=== PATIENT | male | born 1970 | race Caucasian/White ===

== ENCOUNTER 2024-12-12 11:45 | Inpatient (IN) | payer MEDICAID ==
[~2024-12-12] VITALS: Ht 162.6 cm; Wt 48.6 kg
[2024-12-12] MEDS: IPRATROPIUM BROMIDE (0.02%) 0.5MG/2.5ML NEB HHN STA (11:48)
[2024-12-12 11:50] VITALS: RESP 26
[2024-12-12] MEDS ORDERED: ALBUTEROL (0.083%) 2.5MG/3ML NEB HHN SCH (12:00)
[2024-12-12] MEDS: METHYLPREDNISOLONE SOD SUCC 125MG/2ML (ACT-O-VIAL) IV STA (12:30)
[2024-12-12] MEDS: LACTATED RINGERS 1,000 ML IV SCH (12:59)
[2024-12-12 13:29] LABS: CHLORIDE 97 mEq/L (98-107); POTASSIUM 3.9 mEq/L (3.5-5.1); SODIUM 130 mEq/L (136-145)
[2024-12-12 13:30] LABS: CALCIUM 9.1 mg/dL (8.7-10.4); CARBON DIOXIDE 21 mEq/L (21-32)
[2024-12-12 13:32] LABS: INR 1.1; PROTHROMBIN TIME 12.5 sec (9.6-11.0)
[2024-12-12 13:35] LABS: CREATININE 0.6 mg/dL (0.6-1.3); GLUCOSE 178 mg/dL (70-105); UREA NITROGEN BLOOD 16 mg/dL (9-23)
[2024-12-12 13:36] LABS: ALANINE AMINOTRANSFERASE 31 IU/L (10-49); LACTIC ACID 2.8 mmol/L (0.4-2.0); TROPONIN I HIGH SENSITIVITY 6 ng/L (3.0-53)
[2024-12-12 13:37] LABS: ALBUMIN 3.8 g/dL (3.2-4.8); ASPARTATE AMINOTRANSFERASE 45 IU/L (<34); BILIRUBIN DIRECT 0.4 mg/dL (<=3.0); PROTEIN TOTAL 7.3 g/dL (6.0-8.3)
[2024-12-12 13:56] LABS: HEMATOCRIT. 35.6 % (42.0-52.0); HEMOGLOBIN. 11.2 g/dL (14.0-18.0); MEAN CORPUSCULAR HGB CONC 31.6 g/dL (31.0-37.0); MEAN CORPUSCULAR VOLUME 75.9 fL (80.0-94.0); MEAN PLATELET VOLUME 8.5 fl (7.4-10.4); PLATELET 186 x1000/uL (130-400); RED CELL DISTRIBUTION WIDTH 20.2 % (11.6-14.6); WHITE BLOOD COUNT 22.2 x1000/uL (4.5-11.0)
[2024-12-12 14:09] LABS: BG BASE EXCESS -2.1 mmol/L (-2.0-3.0); BG CARBOXYHEMOGLOBIN 1.2 % (0.5-1.5); BG DEOXYHEMOGLOBIN 0.1 % (0.0-5.0); BG FRACTION INSPIRED OXYGEN 100; BG HCO3 ACT 22.3 mmol/L (21.0-28.0); BG METHEMOGLOBIN 0.3 % (0.5-1.5); BG OXYGEN SATURATION 99.9 % (94.0-98.0); BG OXYHEMOGLOBIN 98.4 % (94.0-98.0); BG PCO2 36.7 mmHg (35.0-48.0); BG PH 7.401 (7.350-7.450); BG PO2 346.6 mmHg (83.0-108.0); BG SAMPLE SITE RIGHT RADIAL; BG TOTAL HEMOGLOBIN 12.5 g/dL (13.5-17.5); BG VENT MODE MASK - BIPAP; DIFFERENTIAL COMMENT 1
[2024-12-12] MEDS: CEFTRIAXONE 1GM/50ML 50 ML IV ONE (14:25)
[2024-12-12] MEDS: AZITHROMYCIN 500MG/250ML 250 ML IV STA (15:16)
[2024-12-12] MEDS ORDERED: HYDRALAZINE 20MG/ML VIAL IV PRN (15:30)
[2024-12-12] MEDS ORDERED: ACETAMINOPHEN 325MG TABLET PO PRN (15:30)
[2024-12-12] MEDS ORDERED: IPRATROPIUM/ALBUTEROL 0.5-3(2.5)MG/3ML NEB HHN PRN ×2 (15:30→15:45)
[2024-12-12 15:45] VITALS: RESP 40
[2024-12-12] MEDS ORDERED: DOCUSATE SODIUM 100MG CAPSULE PO PRN (15:45)
[2024-12-12] MEDS ORDERED: ONDANSETRON HCL 4MG/2ML INJ IV PRN (15:45)
[2024-12-12] MEDS ORDERED: DEXTROSE 50% WATER 50ML SYRINGE IV PRN (15:45)
[2024-12-12] MEDS: ENOXAPARIN 40MG/0.4ML SYR SUBCUT SCH (16:00)
[2024-12-12] MEDS ORDERED: CEFTRIAXONE 1GM/50ML 50 ML IV SCH (16:00)
[2024-12-12 16:06] LABS: TROPONIN I HIGH SENSITIVITY 11 ng/L (3.0-53)
[2024-12-12] MEDS: ALBUTEROL (0.083%) 2.5MG/3ML NEB HHN SCH (16:30)
[2024-12-12 16:55] VITALS: PULSE 139; RESP 16; O2SAT 99
[2024-12-12] MEDS ORDERED: AZITHROMYCIN 500MG/250ML 250 ML IV SCH (17:00)
[2024-12-12] MEDS ORDERED: FENTANYL CITRATE/PF 2,500 MCG in SODIUM CHLORIDE 0.9% 200 ML IV PRN (17:15)
[2024-12-12] MEDS ORDERED: IPRATROPIUM/ALBUTEROL 0.5-3(2.5)MG/3ML NEB HHN SCH (18:00)
[2024-12-12 18:44] LABS: BG BASE EXCESS -5.5 mmol/L (-2.0-3.0); BG CARBOXYHEMOGLOBIN 1.4 % (0.5-1.5); BG FRACTION INSPIRED OXYGEN 50; BG HCO3 ACT 22.7 mmol/L (21.0-28.0); BG METHEMOGLOBIN 0.3 % (0.5-1.5); BG OXYGEN SATURATION 89.8 % (94.0-98.0); BG OXYHEMOGLOBIN 88.3 % (94.0-98.0); BG PCO2 56.7 mmHg (35.0-48.0); BG PH 7.221 (7.350-7.450); BG PO2 71.2 mmHg (83.0-108.0); BG SAMPLE SITE RIGHT RADIAL; BG TOTAL HEMOGLOBIN 12.4 g/dL (13.5-17.5); BG VENT MODE VENT - AC
[2024-12-12] MEDS: PROPOFOL 10MG/ML 100ML 100 ML IV PRN (19:07)
[2024-12-12] MEDS: IPRATROPIUM BROMIDE (0.02%) 0.5MG/2.5ML NEB HHN SCH (20:18)
[2024-12-12 20:19] VITALS: PULSE 137; RESP 26; O2SAT 92
[2024-12-12] MEDS: FENTANYL CITRATE 1,000 MCG in SODIUM CHLORIDE 0.9% 80 ML IV PRN (20:40)
[2024-12-12] MEDS ORDERED: GUAIFENESIN 600MG ER TABLET PO SCH ×2 (21:00)
[2024-12-12 22:42] LABS: HYPOCHROMASIA 1+; MICROCYTOSIS 1+; PLATELET ESTIMATE NORMAL
[2024-12-13] VITALS (32 sets, daily range): BP systolic 79–96; BP diastolic 68–78; PULSE 95–138; RESP 16–31; TEMP 36.05844–36.4736; O2SAT 90–99
[2024-12-13 00:03] LABS: CLARITY URINE CLEAR (CLEAR); COLOR URINE DARK YELLOW (YELLOW); GLUCOSE URINE 2+ (NEGATIVE); KETONES URINE 1+ (NEGATIVE); LEUKOCYTE ESTERASE URINE NEGATIVE (NEGATIVE); NITRITE URINE NEGATIVE (NEGATIVE); OCCULT BLOOD URINE 2+ (NEGATIVE); PH URINE 5.5 (4.5-8.0); PROTEIN URINE 2+ (NEGATIVE); SPECIFIC GRAVITY URINE 1.025 (1.005-1.030)
[2024-12-13] MEDS: BLOOD SUGAR DIAGNOSTIC STRIP TEST SCH (00:30)
[2024-12-13 00:36] LABS: SODIUM URINE RANDOM 39 mEq/L
[2024-12-13 01:17] LABS: OSMOLALITY URINE 620 mOsm/kg (500-850)
[2024-12-13] MEDS: METHYLPREDNISOLONE SOD SUCC 40MG/ML (ACT-O-VIAL) IV SCH (01:18)
[2024-12-13] MEDS: INSULIN LISPRO 100 UNITS/ML SUBCUT SCH (01:38)
[2024-12-13 03:43] LABS: WBC URINE 0-2 /hpf (0-2)
[2024-12-13 03:48] LABS: BACTERIA URINE NONE SEEN; SQUAMOUS EPITHELIAL CELL URINE NONE SEEN /lpf (RARE/1+)
[2024-12-13] MEDS: PANTOPRAZOLE 40MG DR TABLET PO SCH (07:50)
[2024-12-13 08:39] LABS: HEMATOCRIT. 32.2 % (42.0-52.0); HEMOGLOBIN. 10.3 g/dL (14.0-18.0); MEAN CORPUSCULAR VOLUME 74.9 fL (80.0-94.0); MEAN PLATELET VOLUME 8.1 fl (7.4-10.4); PLATELET 156 x1000/uL (130-400); RED CELL DISTRIBUTION WIDTH 20.8 % (11.6-14.6); WHITE BLOOD COUNT 17.6 x1000/uL (4.5-11.0)
[2024-12-13 08:47] LABS: CHLORIDE 97 mEq/L (98-107); POTASSIUM 4.3 mEq/L (3.5-5.1); SODIUM 129 mEq/L (136-145)
[2024-12-13 08:48] LABS: CALCIUM 9.3 mg/dL (8.7-10.4); CARBON DIOXIDE 22 mEq/L (21-32)
[2024-12-13 08:52] LABS: IRON 22 ug/dL (65-175)
[2024-12-13 08:53] LABS: CREATININE 0.6 mg/dL (0.6-1.3); GLUCOSE 179 mg/dL (70-105); TRIGLYCERIDE 151 mg/dL (0-150); UREA NITROGEN BLOOD 22 mg/dL (9-23)
[2024-12-13 08:54] LABS: DIFFERENTIAL COMMENT 1; LDL CHOLESTEROL 147 mg/dL (5-100)
[2024-12-13 08:55] LABS: CHOLESTEROL 186 mg/dL (<200); HDL CHOLESTEROL 31 mg/dL (>55); PHOSPHORUS 3.2 mg/dL (2.5-4.9); TOTAL IRON BINDING CAPACITY 379 ug/dl (250-425)
[2024-12-13 08:57] LABS: FERRITIN 247 ng/mL (22-322); THYROID STIMULATING HORMONE 0.34 uIU/mL (0.55-4.78)
[2024-12-13 08:58] LABS: FOLIC ACID (FOLATE) SERUM > 20.00 ng/mL (>5.38)
[2024-12-13 08:59] LABS: VITAMIN B12 SERUM > 2000 pg/mL (211-911)
[2024-12-13] MEDS: GUAIFENESIN 200MG/10ML SUGAR FREE UDC PO SCH (09:40)
[2024-12-13 09:42] LABS: ANISOCYTOSIS 2+; MICROCYTOSIS 1+; PLATELET ESTIMATE NORMAL
[2024-12-13] MEDS: CEFTRIAXONE 1GM/50ML 50 ML IV SCH (09:52)
[2024-12-13] MEDS: AZITHROMYCIN 500MG/250ML 250 ML IV SCH (10:17)
[2024-12-13 10:38] LABS: BG BASE EXCESS 1.8 mmol/L (-2.0-3.0); BG CARBOXYHEMOGLOBIN 0.4 % (0.5-1.5); BG FRACTION INSPIRED OXYGEN 60; BG HCO3 ACT 25.1 mmol/L (21.0-28.0); BG METHEMOGLOBIN 0.3 % (0.5-1.5); BG OXYHEMOGLOBIN 98.3 % (94.0-98.0); BG PCO2 34.7 mmHg (35.0-48.0); BG PH 7.477 (7.350-7.450); BG SAMPLE SITE RIGHT BRACHIAL; BG TOTAL HEMOGLOBIN 10.9 g/dL (13.5-17.5); BG VENT MODE VENT - AC
[2024-12-13] MEDS: SODIUM CHLORIDE 0.9% 1,000 ML IV SCH (14:39)
[2024-12-13] MEDS ORDERED: PROPOFOL 10MG/ML 100ML 100 ML IV SCH (17:15)
[2024-12-13] MEDS: PROPOFOL 10MG/ML 100ML 100 ML IV PRN (21:43)
[2024-12-13] MEDS: ACETYLCYSTEINE 200MG/ML 20% VIAL 4ML INH SCH (21:50)
[2024-12-13] MEDS: IPRATROPIUM/ALBUTEROL 0.5-3(2.5)MG/3ML NEB HHN SCH (21:50)
[2024-12-14] VITALS (100 sets, daily range): BP systolic 84–113; BP diastolic 59–98; PULSE 100–116; RESP 14–30; TEMP 36.2–37.3; O2SAT 92–100
[2024-12-14 06:18] LABS: CHLORIDE 103 mEq/L (98-107)
[2024-12-14 06:19] LABS: CARBON DIOXIDE 23 mEq/L (21-32); SODIUM 136 mEq/L (136-145)
[2024-12-14 06:24] LABS: CREATININE 0.6 mg/dL (0.6-1.3)
[2024-12-14 06:25] LABS: GLUCOSE 164 mg/dL (70-105); UREA NITROGEN BLOOD 18 mg/dL (9-23)
[2024-12-14 06:46] LABS: HEMATOCRIT. 31.3 % (42.0-52.0); MEAN CORPUSCULAR HGB CONC 31.9 g/dL (31.0-37.0); MEAN CORPUSCULAR VOLUME 75.2 fL (80.0-94.0); MEAN PLATELET VOLUME 8.7 fl (7.4-10.4); PLATELET 175 x1000/uL (130-400); RED BLOOD CELL COUNT 4.16 mill/uL (4.7-6.1); RED CELL DISTRIBUTION WIDTH 20.4 % (11.6-14.6); WHITE BLOOD COUNT 18.9 x1000/uL (4.5-11.0)
[2024-12-14 07:04] LABS: DIFFERENTIAL COMMENT 1
[2024-12-14] MEDS: FAMOTIDINE 20MG/2ML VIAL IV SCH (09:17)
[2024-12-14 10:37] LABS: BG BASE EXCESS 0.7 mmol/L (-2.0-3.0); BG CARBOXYHEMOGLOBIN 0.7 % (0.5-1.5); BG DEOXYHEMOGLOBIN 2.1 % (0.0-5.0); BG FRACTION INSPIRED OXYGEN 40; BG HCO3 ACT 23.7 mmol/L (21.0-28.0); BG METHEMOGLOBIN 0.3 % (0.5-1.5); BG OXYGEN SATURATION 97.9 % (94.0-98.0); BG OXYHEMOGLOBIN 96.9 % (94.0-98.0); BG PCO2 32.1 mmHg (35.0-48.0); BG PH 7.486 (7.350-7.450); BG PO2 104.9 mmHg (83.0-108.0); BG SAMPLE SITE RIGHT BRACHIAL; BG TOTAL HEMOGLOBIN 10.6 g/dL (13.5-17.5); BG VENT MODE VENT - AC
[2024-12-14 17:32] LABS: ANISOCYTOSIS 2+; PLATELET ESTIMATE NORMAL
[2024-12-14 17:33] LABS: HYPOCHROMASIA 1+; MICROCYTOSIS 1+
[2024-12-14] MEDS: PROPOFOL 10MG/ML 100ML 100 ML IV PRN (20:32)
[2024-12-15] VITALS (103 sets, daily range): BP systolic 82–109; BP diastolic 61–91; PULSE 95–112; RESP 11–30; TEMP 36.3–36.9; O2SAT 87–100
[2024-12-15 06:18] LABS: HEMATOCRIT. 29.2 % (42.0-52.0); HEMOGLOBIN. 9.2 g/dL (14.0-18.0); MEAN CORPUSCULAR HEMOGLOBIN 24.4 pg (28.0-32.0); MEAN CORPUSCULAR HGB CONC 31.4 g/dL (31.0-37.0); MEAN CORPUSCULAR VOLUME 77.6 fL (80.0-94.0); MEAN PLATELET VOLUME 8.6 fl (7.4-10.4); PLATELET 125 x1000/uL (130-400); RED BLOOD CELL COUNT 3.76 mill/uL (4.7-6.1); WHITE BLOOD COUNT 11.3 x1000/uL (4.5-11.0)
[2024-12-15 06:27] LABS: PROTHROMBIN TIME 11.4 sec (9.6-11.0)
[2024-12-15 06:37] LABS: DIFFERENTIAL COMMENT 1
[2024-12-15 06:52] LABS: CARBON DIOXIDE 19 mEq/L (21-32); CHLORIDE 108 mEq/L (98-107); POTASSIUM 5.7 mEq/L (3.5-5.1); SODIUM 139 mEq/L (136-145)
[2024-12-15 06:54] LABS: CALCIUM 8.7 mg/dL (8.7-10.4)
[2024-12-15 06:58] LABS: CREATININE 0.5 mg/dL (0.6-1.3); GLUCOSE 182 mg/dL (70-105); TRIGLYCERIDE 255 mg/dL (0-150); UREA NITROGEN BLOOD 20 mg/dL (9-23)
[2024-12-15 06:59] LABS: LACTATE DEHYDROGENASE 663 IU/L (120-246)
[2024-12-15 09:24] LABS: BG BASE EXCESS -0.9 mmol/L (-2.0-3.0); BG CARBOXYHEMOGLOBIN 0.8 % (0.5-1.5); BG DEOXYHEMOGLOBIN 2.9 % (0.0-5.0); BG FRACTION INSPIRED OXYGEN 40; BG HCO3 ACT 22.7 mmol/L (21.0-28.0); BG METHEMOGLOBIN 0.3 % (0.5-1.5); BG OXYGEN SATURATION 97.1 % (94.0-98.0); BG PCO2 33.5 mmHg (35.0-48.0); BG PH 7.449 (7.350-7.450); BG PO2 98.5 mmHg (83.0-108.0); BG TOTAL HEMOGLOBIN 9.3 g/dL (13.5-17.5); BG VENT MODE VENT - AC
[2024-12-15] MEDS: METOCLOPRAMIDE HCL 10MG/2ML VIAL IV SCH (13:04)
[2024-12-15 13:10] LABS: POTASSIUM 4.5 mEq/L (3.5-5.1)
[2024-12-15] MEDS: SODIUM CHLORIDE 0.9% 1,000 ML IV SCH (14:15)
[2024-12-15 15:38] LABS: PROTEIN BODY FLUID 3.6 gm/dL
[2024-12-15 17:33] LABS: BODY FLUID MONOCYTES 19 %; BODY FLUID RBC 65500 /cu mm (0-2000); BODY FLUID WBC 189 /cu mm (0-200)
[2024-12-15] MEDS: PROPOFOL 10MG/ML 100ML 100 ML IV PRN (18:11)
[2024-12-15 21:39] LABS: ANISOCYTOSIS 1+; HYPOCHROMASIA 1+; MICROCYTOSIS 1+; PLATELET ESTIMATE DECREASED
[2024-12-16] VITALS (96 sets, daily range): BP systolic 83–106; BP diastolic 62–84; PULSE 92–120; RESP 13–38; TEMP 36.7–37.4; O2SAT 89–100
[2024-12-16 05:49] LABS: CHLORIDE 109 mEq/L (98-107); POTASSIUM 4.8 mEq/L (3.5-5.1); SODIUM 141 mEq/L (136-145)
[2024-12-16 05:50] LABS: CALCIUM 8.7 mg/dL (8.7-10.4); CARBON DIOXIDE 25 mEq/L (21-32)
[2024-12-16 05:55] LABS: CREATININE 0.5 mg/dL (0.6-1.3); GLUCOSE 202 mg/dL (70-105); TRIGLYCERIDE 218 mg/dL (0-150); UREA NITROGEN BLOOD 21 mg/dL (9-23)
[2024-12-16 06:00] LABS: HEMATOCRIT. 29.2 % (42.0-52.0); HEMOGLOBIN. 9.3 g/dL (14.0-18.0); MEAN CORPUSCULAR HEMOGLOBIN 24.3 pg (28.0-32.0); MEAN CORPUSCULAR HGB CONC 31.8 g/dL (31.0-37.0); MEAN CORPUSCULAR VOLUME 76.4 fL (80.0-94.0); MEAN PLATELET VOLUME 8.6 fl (7.4-10.4); PLATELET 142 x1000/uL (130-400); RED BLOOD CELL COUNT 3.82 mill/uL (4.7-6.1); RED CELL DISTRIBUTION WIDTH 20.9 % (11.6-14.6); WHITE BLOOD COUNT 8.7 x1000/uL (4.5-11.0)
[2024-12-16 06:31] LABS: DIFFERENTIAL COMMENT 1
[2024-12-16 09:59] LABS: BG BASE EXCESS -1.1 mmol/L (-2.0-3.0); BG DEOXYHEMOGLOBIN 1.4 % (0.0-5.0); BG FRACTION INSPIRED OXYGEN 40; BG METHEMOGLOBIN 0.3 % (0.5-1.5); BG OXYGEN SATURATION 98.6 % (94.0-98.0); BG OXYHEMOGLOBIN 97.3 % (94.0-98.0); BG PCO2 30.5 mmHg (35.0-48.0); BG PH 7.475 (7.350-7.450); BG PO2 124.8 mmHg (83.0-108.0); BG SAMPLE SITE RIGHT RADIAL; BG TOTAL HEMOGLOBIN 9.7 g/dL (13.5-17.5); BG VENT MODE VENT - AC
[2024-12-16 17:20] LABS: ANISOCYTOSIS 2+; MICROCYTOSIS 1+; PLATELET ESTIMATE NORMAL
[2024-12-16] MEDS: PROPOFOL 10MG/ML 100ML 100 ML IV PRN (19:45)
[2024-12-17] VITALS (78 sets, daily range): BP systolic 77–121; BP diastolic 39–96; PULSE 82–123; RESP 14–32; TEMP 36.7–36.8; O2SAT 88–100
[2024-12-17 06:41] LABS: HEMATOCRIT. 31.3 % (42.0-52.0); MEAN CORPUSCULAR HEMOGLOBIN 24.5 pg (28.0-32.0); MEAN CORPUSCULAR HGB CONC 31.9 g/dL (31.0-37.0); MEAN CORPUSCULAR VOLUME 76.7 fL (80.0-94.0); MEAN PLATELET VOLUME 8.4 fl (7.4-10.4); PLATELET 133 x1000/uL (130-400); RED BLOOD CELL COUNT 4.08 mill/uL (4.7-6.1); RED CELL DISTRIBUTION WIDTH 20.7 % (11.6-14.6); WHITE BLOOD COUNT 7.5 x1000/uL (4.5-11.0)
[2024-12-17 06:55] LABS: DIFFERENTIAL COMMENT 1
[2024-12-17 07:00] LABS: CALCIUM 8.6 mg/dL (8.7-10.4); CARBON DIOXIDE 27 mEq/L (21-32); CHLORIDE 110 mEq/L (98-107); POTASSIUM 4.5 mEq/L (3.5-5.1); SODIUM 142 mEq/L (136-145)
[2024-12-17 07:04] LABS: CREATININE 0.4 mg/dL (0.6-1.3)
[2024-12-17 07:06] LABS: GLUCOSE 199 mg/dL (70-105); TRIGLYCERIDE 239 mg/dL (0-150); UREA NITROGEN BLOOD 23 mg/dL (9-23)
[2024-12-17 09:50] LABS: BG BASE EXCESS 1.3 mmol/L (-2.0-3.0); BG CARBOXYHEMOGLOBIN 0.3 % (0.5-1.5); BG DEOXYHEMOGLOBIN 1.8 % (0.0-5.0); BG FRACTION INSPIRED OXYGEN 40; BG HCO3 ACT 25.1 mmol/L (21.0-28.0); BG METHEMOGLOBIN 0.3 % (0.5-1.5); BG OXYGEN SATURATION 98.2 % (94.0-98.0); BG OXYHEMOGLOBIN 97.6 % (94.0-98.0); BG PCO2 36.4 mmHg (35.0-48.0); BG PH 7.456 (7.350-7.450); BG SAMPLE SITE RIGHT RADIAL; BG TOTAL HEMOGLOBIN 9.6 g/dL (13.5-17.5); BG VENT MODE VENT - AC
[2024-12-18] VITALS (73 sets, daily range): BP systolic 92–151; BP diastolic 71–125; PULSE 18–162; RESP 14–36; TEMP 36.8–37.1; O2SAT 78–99
[2024-12-18 06:12] LABS: HEMATOCRIT. 32.2 % (42.0-52.0); HEMOGLOBIN. 10.2 g/dL (14.0-18.0); MEAN CORPUSCULAR HEMOGLOBIN 23.9 pg (28.0-32.0); MEAN CORPUSCULAR HGB CONC 31.5 g/dL (31.0-37.0); MEAN PLATELET VOLUME 8.2 fl (7.4-10.4); PLATELET 126 x1000/uL (130-400); RED BLOOD CELL COUNT 4.24 mill/uL (4.7-6.1); RED CELL DISTRIBUTION WIDTH 20.8 % (11.6-14.6); WHITE BLOOD COUNT 9.6 x1000/uL (4.5-11.0)
[2024-12-18 06:31] LABS: CHLORIDE 110 mEq/L (98-107); POTASSIUM 4.4 mEq/L (3.5-5.1); SODIUM 144 mEq/L (136-145)
[2024-12-18 06:32] LABS: CALCIUM 8.8 mg/dL (8.7-10.4); CARBON DIOXIDE 26 mEq/L (21-32)
[2024-12-18 06:37] LABS: CREATININE 0.5 mg/dL (0.6-1.3); GLUCOSE 174 mg/dL (70-105)
[2024-12-18 06:38] LABS: UREA NITROGEN BLOOD 22 mg/dL (9-23)
[2024-12-18 07:24] LABS: DIFFERENTIAL COMMENT 1
[2024-12-18 10:45] LABS: BG BASE EXCESS -2.1 mmol/L (-2.0-3.0); BG CARBOXYHEMOGLOBIN 0.9 % (0.5-1.5); BG FRACTION INSPIRED OXYGEN 40; BG HCO3 ACT 22.1 mmol/L (21.0-28.0); BG METHEMOGLOBIN 0.3 % (0.5-1.5); BG OXYGEN SATURATION 93.9 % (94.0-98.0); BG OXYHEMOGLOBIN 92.8 % (94.0-98.0); BG PCO2 36.1 mmHg (35.0-48.0); BG PH 7.405 (7.350-7.450); BG PO2 73.9 mmHg (83.0-108.0); BG SAMPLE SITE RIGHT RADIAL; BG TOTAL HEMOGLOBIN 12.5 g/dL (13.5-17.5); BG VENT MODE VENT - CPAP
[2024-12-18 15:36] LABS: BG BASE EXCESS 2.5 mmol/L (-2.0-3.0); BG CARBOXYHEMOGLOBIN 0.6 % (0.5-1.5); BG DEOXYHEMOGLOBIN 3.9 % (0.0-5.0); BG FRACTION INSPIRED OXYGEN 60; BG HCO3 ACT 26.7 mmol/L (21.0-28.0); BG METHEMOGLOBIN 0.3 % (0.5-1.5); BG OXYGEN SATURATION 96.1 % (94.0-98.0); BG OXYHEMOGLOBIN 95.2 % (94.0-98.0); BG PCO2 39.8 mmHg (35.0-48.0); BG PH 7.444 (7.350-7.450); BG PO2 80.9 mmHg (83.0-108.0); BG SAMPLE SITE RIGHT RADIAL; BG TOTAL HEMOGLOBIN 11.7 g/dL (13.5-17.5); BG TOTAL RESPIRATORY RATE 26 b/min; BG VENT MODE MASK - BIPAP
[2024-12-18 17:21] LABS: ANISOCYTOSIS 2+; HYPOCHROMASIA 1+; MICROCYTOSIS 1+; PLATELET ESTIMATE SLIGHTLY DECREASED
[2024-12-18 18:27] LABS: ANISOCYTOSIS 2+; PLATELET ESTIMATE SLIGHTLY DECREASED
[2024-12-18 18:28] LABS: HYPOCHROMASIA 1+; MICROCYTOSIS 1+
[2024-12-18] MEDS ORDERED: DEXTROSE 50% WATER 50ML SYRINGE IV PRN (18:45)
[2024-12-18] MEDS: BLOOD SUGAR DIAGNOSTIC STRIP TEST SCH (21:57)
[2024-12-18] MEDS: INSULIN LISPRO 100 UNITS/ML SUBCUT SCH (22:10)
[2024-12-18] MEDS ORDERED: FENTANYL 2500MCG/250ML PMX 250 ML IV SCH (23:30)
[2024-12-19] VITALS (71 sets, daily range): BP systolic 72–124; BP diastolic 54–100; PULSE 95–134; RESP 13–36; TEMP 36.7–36.8; O2SAT 93–99
[2024-12-19 00:20] LABS: BG BASE EXCESS -1.8 mmol/L (-2.0-3.0); BG CARBOXYHEMOGLOBIN 0.6 % (0.5-1.5); BG DEOXYHEMOGLOBIN 0.2 % (0.0-5.0); BG FRACTION INSPIRED OXYGEN 100; BG METHEMOGLOBIN 0.2 % (0.5-1.5); BG OXYGEN SATURATION 99.8 % (94.0-98.0); BG PH 7.388 (7.350-7.450); BG PO2 357.2 mmHg (83.0-108.0); BG SAMPLE SITE RIGHT RADIAL; BG TOTAL HEMOGLOBIN 12.3 g/dL (13.5-17.5); BG VENT MODE VENT - APRV
[2024-12-19] MEDS: FENTANYL CITRATE 1,000 MCG in SODIUM CHLORIDE 0.9% 80 ML IV PRN (00:51)
[2024-12-19] MEDS: DEXT 5%/0.45% NACL 1000ML 1,000 ML IV SCH (02:21)
[2024-12-19 07:17] LABS: HEMATOCRIT. 31.8 % (42.0-52.0); HEMOGLOBIN. 10.1 g/dL (14.0-18.0); MEAN CORPUSCULAR HEMOGLOBIN 23.9 pg (28.0-32.0); MEAN CORPUSCULAR HGB CONC 31.7 g/dL (31.0-37.0); MEAN CORPUSCULAR VOLUME 75.4 fL (80.0-94.0); MEAN PLATELET VOLUME 8.1 fl (7.4-10.4); PLATELET 100 x1000/uL (130-400); RED BLOOD CELL COUNT 4.22 mill/uL (4.7-6.1); RED CELL DISTRIBUTION WIDTH 20.8 % (11.6-14.6); WHITE BLOOD COUNT 13.4 x1000/uL (4.5-11.0)
[2024-12-19 07:22] LABS: DIFFERENTIAL COMMENT 1
[2024-12-19 08:14] LABS: CARBON DIOXIDE 25 mEq/L (21-32); CHLORIDE 105 mEq/L (98-107); POTASSIUM 4.3 mEq/L (3.5-5.1); SODIUM 140 mEq/L (136-145)
[2024-12-19 08:15] LABS: CALCIUM 8.7 mg/dL (8.7-10.4)
[2024-12-19 08:20] LABS: CREATININE 0.4 mg/dL (0.6-1.3); GLUCOSE 211 mg/dL (70-105); UREA NITROGEN BLOOD 22 mg/dL (9-23)
[2024-12-19 08:22] LABS: PHOSPHORUS 2.4 mg/dL (2.5-4.9)
[2024-12-19 08:23] LABS: PLATELET ESTIMATE SLIGHTLY DECREASED
[2024-12-19 08:24] LABS: ANISOCYTOSIS 1+; MICROCYTOSIS 1+
[2024-12-19 10:02] LABS: BG BASE EXCESS 4.6 mmol/L (-2.0-3.0); BG CARBOXYHEMOGLOBIN 0.6 % (0.5-1.5); BG DEOXYHEMOGLOBIN 0.8 % (0.0-5.0); BG FRACTION INSPIRED OXYGEN 60; BG METHEMOGLOBIN 0.3 % (0.5-1.5); BG OXYGEN SATURATION 99.2 % (94.0-98.0); BG OXYHEMOGLOBIN 98.3 % (94.0-98.0); BG PCO2 37.3 mmHg (35.0-48.0); BG PH 7.494 (7.350-7.450); BG PO2 161.7 mmHg (83.0-108.0); BG SAMPLE SITE LEFT RADIAL; BG TOTAL HEMOGLOBIN 10.7 g/dL (13.5-17.5); BG TOTAL RESPIRATORY RATE 16 b/min; BG VENT MODE VENT - AC
[2024-12-19] MEDS: BLOOD SUGAR DIAGNOSTIC STRIP TEST SCH (12:00)
[2024-12-19] MEDS: INSULIN LISPRO 100 UNITS/ML SUBCUT SCH (12:08)
[2024-12-19] MEDS ORDERED: METHYLPREDNISOLONE SOD SUCC 125MG/2ML (ACT-O-VIAL) IV SCH (14:00)
[2024-12-19] MEDS: POLYETHYLENE GLYCOL 3350 (17GM) 1 DOSE PACK PO SCH (15:29)
[2024-12-19] MEDS: METHYLPREDNISOLONE SOD SUCC 125MG/2ML (ACT-O-VIAL) IV SCH (22:41)
[2024-12-20] VITALS (64 sets, daily range): BP systolic 87–116; BP diastolic 61–87; PULSE 88–106; RESP 8–25; TEMP 36.8–37.1; O2SAT 93–99
[2024-12-20 06:39] LABS: CARBON DIOXIDE 28 mEq/L (21-32); CHLORIDE 103 mEq/L (98-107); POTASSIUM 4.5 mEq/L (3.5-5.1); SODIUM 138 mEq/L (136-145)
[2024-12-20 06:40] LABS: CALCIUM 8.5 mg/dL (8.7-10.4)
[2024-12-20 06:44] LABS: IRON 32 ug/dL (65-175)
[2024-12-20 06:45] LABS: CREATININE 0.4 mg/dL (0.6-1.3); GLUCOSE 240 mg/dL (70-105); UREA NITROGEN BLOOD 22 mg/dL (9-23)
[2024-12-20 06:47] LABS: TOTAL IRON BINDING CAPACITY 280 ug/dl (250-425)
[2024-12-20 06:50] LABS: FERRITIN 247 ng/mL (22-322); FOLIC ACID (FOLATE) SERUM 7.17 ng/mL (>5.38)
[2024-12-20 06:58] LABS: VITAMIN B12 SERUM > 2000 pg/mL (211-911)
[2024-12-20 07:18] LABS: HEMATOCRIT. 32.3 % (42.0-52.0); HEMOGLOBIN. 10.1 g/dL (14.0-18.0); MEAN CORPUSCULAR HEMOGLOBIN 23.8 pg (28.0-32.0); MEAN CORPUSCULAR HGB CONC 31.3 g/dL (31.0-37.0); MEAN PLATELET VOLUME 8.8 fl (7.4-10.4); PLATELET 96 x1000/uL (130-400); RED BLOOD CELL COUNT 4.25 mill/uL (4.7-6.1); RED CELL DISTRIBUTION WIDTH 20.9 % (11.6-14.6)
[2024-12-20 08:08] LABS: DIFFERENTIAL COMMENT 1
[2024-12-20 10:47] LABS: BG BASE EXCESS 1.4 mmol/L (-2.0-3.0); BG CARBOXYHEMOGLOBIN 0.4 % (0.5-1.5); BG DEOXYHEMOGLOBIN 3.1 % (0.0-5.0); BG FRACTION INSPIRED OXYGEN 50; BG HCO3 ACT 26.5 mmol/L (21.0-28.0); BG METHEMOGLOBIN 0.3 % (0.5-1.5); BG OXYGEN SATURATION 96.9 % (94.0-98.0); BG OXYHEMOGLOBIN 96.2 % (94.0-98.0); BG PCO2 43.6 mmHg (35.0-48.0); BG PH 7.401 (7.350-7.450); BG SAMPLE SITE RIGHT RADIAL; BG TOTAL HEMOGLOBIN 11.1 g/dL (13.5-17.5); BG VENT MODE VENT - SIMV
[2024-12-20] MEDS: METHYLPREDNISOLONE SOD SUCC 40MG/ML (ACT-O-VIAL) IV SCH (13:31)
[2024-12-20] MEDS: ASCORBIC ACID 250 MG TABLET NG SCH (17:30)
[2024-12-20] MEDS: FERROUS SULFATE 300MG/5ML UDC NG SCH (17:30)
[2024-12-20 20:53] LABS: ANISOCYTOSIS 1+; HYPOCHROMASIA 1+; MICROCYTOSIS 1+; PLATELET ESTIMATE DECREASED
[2024-12-20] MEDS: SENNOSIDES/DOCUSATE SOD 8.6/50MG TABLET PO SCH (21:15)
[2024-12-21] VITALS (69 sets, daily range): BP systolic 95–116; BP diastolic 62–85; PULSE 86–117; RESP 6–34; TEMP 36.6–37.2; O2SAT 6–100
[2024-12-21 05:16] LABS: HEMATOCRIT. 31.4 % (42.0-52.0); MEAN CORPUSCULAR HEMOGLOBIN 23.9 pg (28.0-32.0); MEAN CORPUSCULAR HGB CONC 31.8 g/dL (31.0-37.0); MEAN CORPUSCULAR VOLUME 75.3 fL (80.0-94.0); MEAN PLATELET VOLUME 8.6 fl (7.4-10.4); PLATELET 79 x1000/uL (130-400); RED BLOOD CELL COUNT 4.16 mill/uL (4.7-6.1); RED CELL DISTRIBUTION WIDTH 20.2 % (11.6-14.6); WHITE BLOOD COUNT 13.7 x1000/uL (4.5-11.0)
[2024-12-21 05:17] LABS: DIFFERENTIAL COMMENT 1
[2024-12-21 05:56] LABS: CHLORIDE 100 mEq/L (98-107); POTASSIUM 4.6 mEq/L (3.5-5.1); SODIUM 133 mEq/L (136-145)
[2024-12-21 05:57] LABS: CALCIUM 8.5 mg/dL (8.7-10.4); CARBON DIOXIDE 29 mEq/L (21-32)
[2024-12-21 06:02] LABS: CREATININE 0.4 mg/dL (0.6-1.3); GLUCOSE 230 mg/dL (70-105); UREA NITROGEN BLOOD 17 mg/dL (9-23)
[2024-12-21] MEDS: FENTANYL CITRATE/PF 1,000 MCG in SODIUM CHLORIDE 0.9% 80 ML IV PRN (08:00)
[2024-12-21 09:24] LABS: ALPHA FETOPROTEIN TUMOR MARKER < 1.8 ng/mL (0.0-8.4); CA 19-9 88 U/mL (0-35); CARCINOEMBRYONIC AG - SEND OUT 34.3 ng/mL (0.0-4.7)
[2024-12-21 14:34] LABS: BG BASE EXCESS 2.9 mmol/L (-2.0-3.0); BG CARBOXYHEMOGLOBIN 0.8 % (0.5-1.5); BG DEOXYHEMOGLOBIN 5.1 % (0.0-5.0); BG FRACTION INSPIRED OXYGEN 40; BG HCO3 ACT 29.1 mmol/L (21.0-28.0); BG METHEMOGLOBIN 0.3 % (0.5-1.5); BG OXYGEN SATURATION 94.8 % (94.0-98.0); BG OXYHEMOGLOBIN 93.8 % (94.0-98.0); BG PCO2 51.4 mmHg (35.0-48.0); BG PH 7.371 (7.350-7.450); BG PO2 76.8 mmHg (83.0-108.0); BG SAMPLE SITE RIGHT RADIAL; BG TOTAL HEMOGLOBIN 12.7 g/dL (13.5-17.5); BG VENT MODE VENT - CPAP
[2024-12-21] MEDS: GUAIFENESIN 200MG/10ML SUGAR FREE UDC PO PRN (21:00)
[2024-12-21 21:59] LABS: ANISOCYTOSIS 1+; HYPOCHROMASIA 1+; MICROCYTOSIS 1+; PLATELET ESTIMATE DECREASED
[2024-12-22] VITALS (88 sets, daily range): BP systolic 85–158; BP diastolic 60–117; PULSE 91–127; RESP 8–32; TEMP 36.6–36.9; O2SAT 88–100
[2024-12-22 06:53] LABS: CARBON DIOXIDE 29 mEq/L (21-32); CHLORIDE 100 mEq/L (98-107); POTASSIUM 4.1 mEq/L (3.5-5.1); SODIUM 133 mEq/L (136-145)
[2024-12-22 06:54] LABS: CALCIUM 8.7 mg/dL (8.7-10.4)
[2024-12-22 06:55] LABS: HEMATOCRIT. 32.6 % (42.0-52.0); HEMOGLOBIN. 10.5 g/dL (14.0-18.0); MEAN CORPUSCULAR HEMOGLOBIN 24.3 pg (28.0-32.0); MEAN CORPUSCULAR HGB CONC 32.3 g/dL (31.0-37.0); MEAN CORPUSCULAR VOLUME 75.2 fL (80.0-94.0); PLATELET 76 x1000/uL (130-400); RED BLOOD CELL COUNT 4.33 mill/uL (4.7-6.1); RED CELL DISTRIBUTION WIDTH 20.3 % (11.6-14.6); WHITE BLOOD COUNT 15.7 x1000/uL (4.5-11.0)
[2024-12-22 06:59] LABS: CREATININE 0.4 mg/dL (0.6-1.3); GLUCOSE 230 mg/dL (70-105); UREA NITROGEN BLOOD 13 mg/dL (9-23)
[2024-12-22 07:06] LABS: DIFFERENTIAL COMMENT 1
[2024-12-22 10:33] LABS: BG BASE EXCESS 0.7 mmol/L (-2.0-3.0); BG CARBOXYHEMOGLOBIN 0.8 % (0.5-1.5); BG DEOXYHEMOGLOBIN 5.9 % (0.0-5.0); BG FRACTION INSPIRED OXYGEN 40; BG HCO3 ACT 25.1 mmol/L (21.0-28.0); BG METHEMOGLOBIN 0.3 % (0.5-1.5); BG PCO2 39.1 mmHg (35.0-48.0); BG PH 7.425 (7.350-7.450); BG PO2 71.3 mmHg (83.0-108.0); BG SAMPLE SITE RIGHT RADIAL; BG TOTAL HEMOGLOBIN 11.1 g/dL (13.5-17.5); BG VENT MODE VENT - SIMV
[2024-12-22] MEDS ORDERED: LIDOCAINE HCL 1% 10 MG/ML 10ML VIAL ONE (10:39)
[2024-12-22] MEDS ORDERED: IPRATROPIUM/ALBUTEROL 0.5-3(2.5)MG/3ML NEB HHN PRN (14:45)
[2024-12-22 16:02] LABS: HYPOCHROMASIA 1+; MICROCYTOSIS 2+; PLATELET ESTIMATE SLIGHTLY DECREASED
[2024-12-22] MEDS: FENTANYL CITRATE/PF 1,000 MCG in DEXT 5% WATER 80 ML IV PRN (17:58)
[2024-12-23] VITALS (98 sets, daily range): BP systolic 89–126; BP diastolic 62–94; PULSE 83–120; RESP 10–28; TEMP 36.3–36.8; O2SAT 91–100
[2024-12-23 05:01] LABS: HEMATOCRIT. 32.8 % (42.0-52.0); HEMOGLOBIN. 10.5 g/dL (14.0-18.0); MEAN CORPUSCULAR HEMOGLOBIN 24.2 pg (28.0-32.0); MEAN CORPUSCULAR VOLUME 75.6 fL (80.0-94.0); MEAN PLATELET VOLUME 9.7 fl (7.4-10.4); PLATELET 78 x1000/uL (130-400); RED BLOOD CELL COUNT 4.34 mill/uL (4.7-6.1); RED CELL DISTRIBUTION WIDTH 20.6 % (11.6-14.6); WHITE BLOOD COUNT 16.8 x1000/uL (4.5-11.0)
[2024-12-23 05:11] LABS: CHLORIDE 99 mEq/L (98-107); DIFFERENTIAL COMMENT 1; POTASSIUM 4.4 mEq/L (3.5-5.1); SODIUM 134 mEq/L (136-145)
[2024-12-23 05:12] LABS: CARBON DIOXIDE 29 mEq/L (21-32)
[2024-12-23 05:13] LABS: CALCIUM 8.5 mg/dL (8.7-10.4)
[2024-12-23 05:17] LABS: CREATININE 0.4 mg/dL (0.6-1.3); GLUCOSE 222 mg/dL (70-105); UREA NITROGEN BLOOD 13 mg/dL (9-23)
[2024-12-23] MEDS: DEXMEDETOMIDINE 400 MCG/100 ML 100 ML IV PRN (13:58)
[2024-12-23 15:52] LABS: BG BASE EXCESS 3.2 mmol/L (-2.0-3.0); BG CARBOXYHEMOGLOBIN 0.8 % (0.5-1.5); BG DEOXYHEMOGLOBIN 2.3 % (0.0-5.0); BG FRACTION INSPIRED OXYGEN 40; BG HCO3 ACT 27.4 mmol/L (21.0-28.0); BG METHEMOGLOBIN 0.3 % (0.5-1.5); BG OXYGEN SATURATION 97.7 % (94.0-98.0); BG OXYHEMOGLOBIN 96.6 % (94.0-98.0); BG PCO2 39.9 mmHg (35.0-48.0); BG PH 7.454 (7.350-7.450); BG PO2 97.4 mmHg (83.0-108.0); BG SAMPLE SITE RIGHT RADIAL; BG TOTAL HEMOGLOBIN 12.1 g/dL (13.5-17.5); BG VENT MODE VENT - CPAP
[2024-12-23 16:55] LABS: MICROCYTOSIS 1+; PLATELET ESTIMATE DECREASED
[2024-12-23 16:56] LABS: ANISOCYTOSIS 1+; HYPOCHROMASIA 1+
[2024-12-23] MEDS: LORAZEPAM 0.5MG TABLET PO PRN (20:18)
[2024-12-24] VITALS (45 sets, daily range): BP systolic 92–141; BP diastolic 64–97; PULSE 106–127; RESP 16–35; TEMP 36.6–36.8; O2SAT 91–100
[2024-12-24] MEDS: MELATONIN 3MG TABLET PO PRN (00:51)
[2024-12-24 05:58] LABS: HEMATOCRIT. 37.6 % (42.0-52.0); HEMOGLOBIN. 11.8 g/dL (14.0-18.0); MEAN CORPUSCULAR HEMOGLOBIN 23.8 pg (28.0-32.0); MEAN CORPUSCULAR HGB CONC 31.3 g/dL (31.0-37.0); MEAN PLATELET VOLUME 9.1 fl (7.4-10.4); PLATELET 101 x1000/uL (130-400); RED BLOOD CELL COUNT 4.94 mill/uL (4.7-6.1); RED CELL DISTRIBUTION WIDTH 21.3 % (11.6-14.6); WHITE BLOOD COUNT 24.8 x1000/uL (4.5-11.0)
[2024-12-24 06:01] LABS: CARBON DIOXIDE 29 mEq/L (21-32); CHLORIDE 101 mEq/L (98-107); POTASSIUM 3.9 mEq/L (3.5-5.1); SODIUM 136 mEq/L (136-145)
[2024-12-24 06:02] LABS: CALCIUM 8.8 mg/dL (8.7-10.4)
[2024-12-24 06:06] LABS: CREATININE 0.4 mg/dL (0.6-1.3); GLUCOSE 208 mg/dL (70-105)
[2024-12-24 06:07] LABS: UREA NITROGEN BLOOD 12 mg/dL (9-23)
[2024-12-24 07:19] LABS: DIFFERENTIAL COMMENT 1
[2024-12-24 10:51] LABS: BG BASE EXCESS 2.2 mmol/L (-2.0-3.0); BG CARBOXYHEMOGLOBIN 0.7 % (0.5-1.5); BG DEOXYHEMOGLOBIN 0.8 % (0.0-5.0); BG FRACTION INSPIRED OXYGEN 80; BG HCO3 ACT 25.8 mmol/L (21.0-28.0); BG METHEMOGLOBIN 0.3 % (0.5-1.5); BG OXYGEN SATURATION 99.2 % (94.0-98.0); BG OXYHEMOGLOBIN 98.2 % (94.0-98.0); BG PCO2 36.3 mmHg (35.0-48.0); BG PH 7.469 (7.350-7.450); BG PO2 142.5 mmHg (83.0-108.0); BG SAMPLE SITE RIGHT RADIAL; BG TOTAL HEMOGLOBIN 11.9 g/dL (13.5-17.5); BG VENT MODE HIGH FLOW
[2024-12-24] MEDS: IPRATROPIUM/ALBUTEROL 0.5-3(2.5)MG/3ML NEB HHN SCH (20:55)
[2024-12-24] MEDS: METHYLPREDNISOLONE SOD SUCC 40MG/ML (ACT-O-VIAL) IV SCH (21:52)
[2024-12-25] VITALS (18 sets, daily range): BP systolic 105–125; BP diastolic 80–92; PULSE 118–133; RESP 18–32; TEMP 36.4–36.6; O2SAT 93–98
[2024-12-25 07:38] LABS: CARBON DIOXIDE 25 mEq/L (21-32); CHLORIDE 104 mEq/L (98-107); POTASSIUM 3.4 mEq/L (3.5-5.1); SODIUM 140 mEq/L (136-145)
[2024-12-25 07:39] LABS: CALCIUM 8.7 mg/dL (8.7-10.4)
[2024-12-25 07:44] LABS: CREATININE 0.4 mg/dL (0.6-1.3); GLUCOSE 216 mg/dL (70-105); UREA NITROGEN BLOOD 11 mg/dL (9-23)
[2024-12-25 09:16] LABS: BG CARBOXYHEMOGLOBIN 0.7 % (0.5-1.5); BG DEOXYHEMOGLOBIN 6.7 % (0.0-5.0); BG FRACTION INSPIRED OXYGEN 70; BG METHEMOGLOBIN 0.3 % (0.5-1.5); BG OXYGEN SATURATION 93.2 % (94.0-98.0); BG OXYHEMOGLOBIN 92.3 % (94.0-98.0); BG PCO2 33.3 mmHg (35.0-48.0); BG PH 7.476 (7.350-7.450); BG PO2 66.6 mmHg (83.0-108.0); BG SAMPLE SITE RIGHT BRACHIAL; BG TOTAL HEMOGLOBIN 12.5 g/dL (13.5-17.5); BG VENT MODE HIGH FLOW
[2024-12-25 10:21] LABS: HEMATOCRIT. 38.2 % (42.0-52.0); HEMOGLOBIN. 11.7 g/dL (14.0-18.0); MEAN CORPUSCULAR HEMOGLOBIN 23.4 pg (28.0-32.0); MEAN CORPUSCULAR HGB CONC 30.7 g/dL (31.0-37.0); MEAN CORPUSCULAR VOLUME 76.3 fL (80.0-94.0); MEAN PLATELET VOLUME 9.9 fl (7.4-10.4); PLATELET 110 x1000/uL (130-400); RED CELL DISTRIBUTION WIDTH 21.9 % (11.6-14.6)
[2024-12-25 10:26] LABS: DIFFERENTIAL COMMENT 1
[2024-12-25 16:26] LABS: PLATELET ESTIMATE NORMAL
[2024-12-25 16:27] LABS: HYPOCHROMASIA 1+; MICROCYTOSIS 2+
[2024-12-25 18:15] LABS: ANISOCYTOSIS 1+; HYPOCHROMASIA 1+; MICROCYTOSIS 1+; PLATELET ESTIMATE DECREASED
== END 2024-12-25 22:15 | disposition hospice, home (50) | DRG 720 ==
LOC: ER 11:45 → EDBEDREQ 12:54 → EDBEDREQTM 12:54 → EDBEDREQSVC 18:16 → MICUSO 12-13 12:53 → 5EST 12-24 21:13
PROVIDERS: ADMIT Internal Medicine; ATTEND Internal Medicine
PROC: 5A1955Z Respiratory Ventilation, Greater than 96 Consecutive Hours (ICD-10-PCS; 2024-12-12)
PROC: 5A09357 Assistance with Respiratory Ventilation, Less than 24 Consecutive Hours, Continuous Positive Airway Pressure (ICD-10-PCS; 2024-12-12)
PROC: 0BH17EZ Insertion of Endotracheal Airway into Trachea, Via Natural or Artificial Opening (ICD-10-PCS; 2024-12-12)
PROC: 0W9B3ZZ Drainage of Left Pleural Cavity, Percutaneous Approach (ICD-10-PCS; principal; 2024-12-15)
PROC: 5A09357 Assistance with Respiratory Ventilation, Less than 24 Consecutive Hours, Continuous Positive Airway Pressure (ICD-10-PCS; 2024-12-18)
PROC: 5A1945Z Respiratory Ventilation, 24-96 Consecutive Hours (ICD-10-PCS; 2024-12-18)
PROC: 0BH17EZ Insertion of Endotracheal Airway into Trachea, Via Natural or Artificial Opening (ICD-10-PCS; 2024-12-18)
PROC: 05HM33Z Insertion of Infusion Device into Right Internal Jugular Vein, Percutaneous Approach (ICD-10-PCS; 2024-12-22)
PROC: B543ZZA Ultrasonography of Right Jugular Veins, Guidance (ICD-10-PCS; 2024-12-22)
PROC: 5A0945A Assistance with Respiratory Ventilation, 24-96 Consecutive Hours, High Flow/Velocity Cannula (ICD-10-PCS; 2024-12-23)
PROC: 5A0935A Assistance with Respiratory Ventilation, Less than 24 Consecutive Hours, High Flow/Velocity Cannula (ICD-10-PCS; 2024-12-23)
DX: A41.9 Sepsis, unspecified organism (principal); J96.21 Acute and chronic respiratory failure with hypoxia; J18.9 Pneumonia, unspecified organism; D69.6 Thrombocytopenia, unspecified; E83.39 Other disorders of phosphorus metabolism; E83.51 Hypocalcemia; E87.1 Hypo-osmolality and hyponatremia; E87.20 Acidosis, unspecified; Z66 Do not resuscitate; J90 Pleural effusion, not elsewhere classified; C78.00 Secondary malignant neoplasm of unspecified lung; E11.65 Type 2 diabetes mellitus with hyperglycemia; R59.0 Localized enlarged lymph nodes; C19 Malignant neoplasm of rectosigmoid junction; F41.9 Anxiety disorder, unspecified; D50.9 Iron deficiency anemia, unspecified; R14.0 Abdominal distension (gaseous); K59.00 Constipation, unspecified; Z85.118 Personal history of other malignant neoplasm of bronchus and lung; Z85.038 Personal history of other malignant neoplasm of large intestine; Z99.81 Dependence on supplemental oxygen; Z92.21 Personal history of antineoplastic chemotherapy; Z51.5 Encounter for palliative care; Z79.4 Long term (current) use of insulin
CPT/HCPCS: 31500; 31720; 32555; 36415; 36573; 36600; 71045; 71275; 74018; 80048; 80061; 80076; 81003; 82040; 82105; 82375; 82378; 82607; 82728; 82746; 82805; 82962; 83036; 83540; 83550; 83605; 83615; 83735; 83880; 83930; 83935; 84100; 84132; 84145; 84300; 84439; 84443; 84478; 84484; 84550; 85025; 86301; 87070; 88108; 88312; 93005; 94002; 94003; 94070; 94640; 94660; 94664; 98960; 99291; A4606; A6261; C1725; J0456; J0696; J1650; J1815; J2003; J2704; J2765; J2919; J2920; J3010; J3490; J7030; J7050; J7060; J7608; Q9957